=== PATIENT | male | born 1965 | race African-American/Black ===

== ENCOUNTER 2021-04-14 11:27 | Emergency (ER) | payer OTHER ==
[~2021-04-14 11:27] MED LIST: MOTRIN600 MG PO; PHENERGAN25 M1 PO
== END 2021-04-14 12:34 | disposition home or self-care (01) ==
LOC: FER 11:27
DX: S81.812A Laceration without foreign body, left lower leg, initial encounter (principal); W45.8XXA Other foreign body or object entering through skin, initial encounter; Y92.89 Other specified places as the place of occurrence of the external cause; Y99.0 Civilian activity done for income or pay

== ENCOUNTER → 2022-04-08 | Day surgery (SDC) | payer OTHER ==
[~2022-04-08] VITALS: Ht 175 cm; Wt 98.0 kg
[~2022-04-08] MED LIST changes: +KEPPRA XR500 MG PO; +LIPITOR 10MG TA10 MG PO
== END | disposition home or self-care (01) ==
LOC: FAS 06:42
DX: Z12.11 Encounter for screening for malignant neoplasm of colon (principal); D12.0 Benign neoplasm of cecum; K57.30 Diverticulosis of large intestine without perforation or abscess without bleeding; N50.89 Other specified disorders of the male genital organs; I10 Essential (primary) hypertension; E78.5 Hyperlipidemia, unspecified; Z80.0 Family history of malignant neoplasm of digestive organs; Z79.899 Other long term (current) drug therapy
CPT/HCPCS: J2704; J7120